=== PATIENT | female | born 1990 | race African-American/Black ===

== ENCOUNTER 2016-10-08 09:01 | Emergency (ER) | payer OTHER, SELFPAY ==
[2016-10-08 10:07] LABS: Leukocyte Negative (Negative); Nitrite Negative (Negative); Protein, Urine (Dipstick) Trace mg/dL (Neg-Trace); pH, Urine 6.5 (5.0-9.0)
[2016-10-08 10:08] LABS: Bilirubin Negative (Negative); Blood, Urine Trace (Negative); Glucose, Urine (Dipstick) Negative (Negative); Urobilinogen 0.2 mg/dL (0.2-1.0)
[2016-10-08 10:09] LABS: Clarity Clear (Clear)
[2016-10-08 10:20] LABS: RBC/HPF 0-3 HPF (0-3)
[2016-10-08 10:21] LABS: Bacteria/HPF Rare-Few HPF (None Seen); Squamous Epithelial 0-3 HPF (0-3)
== END 2016-10-08 10:50 | disposition home or self-care (01) ==
LOC: NAV ERS 09:01
DX: N10 Acute pyelonephritis (principal); I10 Essential (primary) hypertension; Z85.41 Personal history of malignant neoplasm of cervix uteri
CPT/HCPCS: 81003; 81015; 87077; 87086; 87186; 99283

== ENCOUNTER 2017-11-11 21:56 | Emergency (ER) | payer OTHER, SELFPAY ==
[2017-11-11 22:20] LABS: Bilirubin Negative (Negative); Blood, Urine Negative (Negative); Clarity Cloudy (Clear); Glucose, Urine (Dipstick) Negative (Negative); Leukocyte Moderate (Negative); Nitrite Negative (Negative); Pregnancy Test - Urine (BHCG) POSITIVE (Negative); Pregu Control Background? CLEAR/WHITE (CLR/WHITE); Pregu Control Bar Appear? YES (CONTROL BAR); Protein, Urine (Dipstick) 30 mg/dL (Neg-Trace); Specific Gravity 1.029 (1.002-1.036); pH, Urine 6.5 (5.0-9.0)
[2017-11-11 22:21] LABS: Specific Gravity, Urine 1.029 (1.002-1.036)
[2017-11-11 22:25] LABS: Bacteria/HPF 2+ HPF (None Seen); RBC/HPF None Seen HPF (0-3); Squamous Epithelial 21-50 HPF (0-3)
[2017-11-11] MEDS ORDERED: Cephalexin 250 MG CAP ONE (22:30)
== END 2017-11-11 22:40 | disposition home or self-care (01) ==
LOC: NAV ERS 21:56
DX: O23.42 Unspecified infection of urinary tract in pregnancy, second trimester (principal); I10 Essential (primary) hypertension; Z3A.15 15 weeks gestation of pregnancy
CPT/HCPCS: 81003; 81015; 81025; 87077; 87086; 87186; 99283

== ENCOUNTER 2018-04-15 08:13 | Emergency (ER) | payer OTHER ==
[2018-04-15] MEDS ORDERED: Acetaminophen 500 MG TAB ONE (08:50)
== END 2018-04-15 09:23 | disposition home or self-care (01) ==
LOC: NAV ERS 08:13
DX: O99.513 Diseases of the respiratory system complicating pregnancy, third trimester (principal); J02.9 Acute pharyngitis, unspecified; O10.913 Unspecified pre-existing hypertension complicating pregnancy, third trimester; Z3A.39 39 weeks gestation of pregnancy
CPT/HCPCS: 87081; 87430; 99283

== ENCOUNTER 2018-09-12 22:28 | Emergency (ER) | payer OTHER, SELFPAY ==
[2018-09-12 23:11] LABS: Clarity Clear (Clear); Leukocyte Negative (Negative); Specific Gravity, Urine 1.025 (1.005-1.030); pH, Urine 5.5 (5.0-9.0)
[2018-09-12 23:12] LABS: Bilirubin Negative (Negative); Blood, Urine Moderate (Negative); Glucose, Urine (Dipstick) Negative (Negative); Nitrite Negative (Negative); Pregnancy Test - Urine (BHCG) Negative (Negative); Pregu Control Background? CLEAR/WHITE (CLR/WHITE); Pregu Control Bar Appear? YES (CONTROL BAR); Protein, Urine (Dipstick) Negative (Neg-Trace); Specific Gravity 1.025 (1.002-1.036); Urobilinogen 0.2 mg/dL (0.2-1.0)
[2018-09-12 23:13] LABS: Bacteria/HPF None Seen HPF (None Seen); Squamous Epithelial 0-3 HPF (0-3); WBC/HPF None Seen HPF (0-3)
== END 2018-09-12 23:30 | disposition home or self-care (01) ==
LOC: NAV ERS 22:28
DX: N93.8 Other specified abnormal uterine and vaginal bleeding (principal); I10 Essential (primary) hypertension
CPT/HCPCS: 81003; 81015; 81025; 99284